=== PATIENT | female | born 1955 | race Caucasian/White ===

== ENCOUNTER 2025-05-25 11:31 | Outpatient (CLI) | payer MEDICARE ==
--- NOTE | 2025-05-25 13:00 | RADIOLOGY REPORT ---
CLINICAL INDICATION: pain TECHNIQUE: 3 radiographic views of the bilateral sacroiliac joints were obtained. Comparison: None FINDINGS/IMPRESSION: There is no evidence of acute fracture or dislocation. The visualized joint space is well maintained. The alignment is anatomical. There is no radiopaque foreign body.
--- NOTE | 2025-05-25 13:06 | RADIOLOGY REPORT ---
CLINICAL INDICATION: LOW BACK PAIN, LEFT HIP PAIN TECHNIQUE: 1 radiographic views of the pelvis and 2 views of the bilateral hip were obtained. Comparison: None FINDINGS/IMPRESSION: There is no evidence of acute fracture or dislocation. The visualized joint space is well maintained. The alignment is anatomical. There is no radiopaque foreign body.
--- NOTE | 2025-05-25 13:06 | RADIOLOGY REPORT ---
INDICATION: LOW BACK PAIN, LEFT HIP PAIN COMPARISON: None TECHNIQUE: 3 views of the lumbar spine were obtained. FINDINGS: Mild anterolisthesis of L4 on L5. Mild multilevel degenerative disc disease of the lumbosacral spine No acute fracture, vertebral compression deformity or aggressive osseous lesions. The paravertebral soft tissues are grossly unremarkable. IMPRESSION: No acute fracture.
== END 2025-05-25 23:59 | disposition home or self-care (01) ==
LOC: RAD 11:31
PROVIDERS: ATTEND Internal Medicine
DX: M43.16 Spondylolisthesis, lumbar region (principal); M25.552 Pain in left hip; M46.1 Sacroiliitis, not elsewhere classified; G31.84 Mild cognitive impairment of uncertain or unknown etiology; M54.51 Vertebrogenic low back pain; M51.379 Other intervertebral disc degeneration, lumbosacral region without mention of lumbar back pain or lower extremity pain
CPT/HCPCS: 72100; 72200; 73502

== ENCOUNTER 2025-06-12 14:10 | Outpatient (CLI) | payer MEDICARE ==
--- NOTE | 2025-06-12 16:28 | RADIOLOGY REPORT ---
CLINICAL HISTORY: MILD COGNITIVE IMPAIRMENT OF UNCERTAIN OR UNKNOWN ETIOLOGY TECHNIQUE: Routine multiplanar imaging of the brain was performed without gadolinium contrast. COMPARISON: None FINDINGS: There is no abnormal restricted diffusion to suggest acute infarction. There is mild brain volume loss. Scattered T2 hyperintense foci within the white matter both cerebral hemispheres is most compatible with a minimal burden of nonspecific chronic small vessel ischemic change. There is no evidence for acute ischemic changes, mass, mass effect, or extra- axial fluid collection. There is no hydrocephalus or midline shift. The cerebral sulci and subarachnoid cisterns are not effaced. The imaged paranasal sinuses are clear. The globes are intact. The midline structures, including the corpus callosum, are unremarkable. The intracranial flow voids are maintained. IMPRESSION: No acute intracranial abnormality seen. No evidence for acute infarct. Mild brain volume loss. Minimal chronic small vessel ischemic change.
== END 2025-06-12 23:59 | disposition home or self-care (01) ==
LOC: MRI02 14:10
PROVIDERS: ATTEND Internal Medicine
DX: G31.84 Mild cognitive impairment of uncertain or unknown etiology (principal); M46.1 Sacroiliitis, not elsewhere classified; M25.552 Pain in left hip; M54.51 Vertebrogenic low back pain
CPT/HCPCS: 70551

== ENCOUNTER 2025-06-16 07:42 | Outpatient (CLI) | payer MEDICARE ==
--- NOTE | 2025-06-16 08:43 | RADIOLOGY REPORT ---
CLINICAL HISTORY: EPIGASTRIC PAIN,UPPER ABDOMINAL PAIN TECHNIQUE: CT of the abdomen and pelvis was performed with oral contrast. No IV contrast was administered. This exam was performed according to our departmental dose optimization program. Up-to-date CT equipment and radiation dose reduction techniques are utilized as appropriate. CTDI 6.8 DLP 304 COMPARISON: None FINDINGS: Abdomen/Pelvis: The spleen, pancreas, adrenal glands, kidneys, gallbladder, liver, uterus, and bladder are grossly unremarkable. The abdominal aorta is normal in course and caliber. There are [id number] aortic atherosclerotic calcifications. There is no free intraperitoneal air or fluid. There is no enlarged abdominal or pelvic lymph node. There is no bowel wall thickening or dilatation. The appendix is normal. Other: The imaged lower thorax is unremarkable. No acute osseous abnormality is evident. IMPRESSION: No acute abnormality.
[2025-06-16 09:19] LABS: MEAN PLATELET VOLUME 6.9 FL (7.4-10.4); RED CELL DISTRIBUTION WIDTH 13.0 % (11.5-14.5)
[2025-06-16 09:20] LABS: LEUKOCYTE ESTERASE ,URINE NEGATIVE (Neg); NITRITES, URINE NEGATIVE (Neg); OCCULT BLOOD,URINE NEGATIVE (Neg)
[2025-06-16 09:28] LABS: UA COLLECTION TYPE NON-SPECIFIED
[2025-06-16 09:36] LABS: CHOL/HDL RATIO 2.6 (0.00-4.99); CREATININE 0.70 MG/DL (0.40-0.90); LDL CHOLESTEROL 100 MG/DL (50-100); TOTAL CARBON DIOXIDE 29.9 MMOL/L (24-32); eGFR 83 ML/MIN
== END 2025-06-16 23:59 | disposition home or self-care (01) ==
LOC: RAD 07:42
PROVIDERS: ATTEND Internal Medicine
DX: I70.0 Atherosclerosis of aorta (principal); I10 Essential (primary) hypertension; A53.9 Syphilis, unspecified; E55.9 Vitamin D deficiency, unspecified; E78.5 Hyperlipidemia, unspecified; R10.13 Epigastric pain; R10.10 Upper abdominal pain, unspecified; R73.01 Impaired fasting glucose; N39.0 Urinary tract infection, site not specified; E03.9 Hypothyroidism, unspecified; D52.9 Folate deficiency anemia, unspecified
CPT/HCPCS: 36415; 74176; 80053; 80061; 81003; 82043; 82746; 83036; 84425; 84443; 85025; 86592

== ENCOUNTER 2025-06-23 09:16 | Outpatient (CLI) | payer MEDICARE ==
--- NOTE | 2025-06-23 11:41 | RADIOLOGY REPORT ---
INDICATION: POSTMENOPAUSAL BLEEDING TECHNIQUE: Multiple real-time grayscale transabdominal sonographic images along with color and duplex Doppler of the uterus and ovaries were obtained. COMPARISON: None FINDINGS: The uterus measures 2 x 1 x 1 cm. The endometrial stripe measures 0.6cm. The right ovary measures 2 x 1 x 1 cm. SubCm right ovarian cyst. The left ovary measures 2 x 2 x 1 cm. Subsequent color and duplex Doppler interrogation of the ovaries demonstrated symmetric vascular flow to both ovaries, though this does not exclude the possibility of torsion due to the dual blood supply. IMPRESSION: 1. Grossly unremarkable pelvic ultrasound.
== END 2025-06-23 23:59 | disposition home or self-care (01) ==
LOC: RAD 09:16
PROVIDERS: ATTEND Internal Medicine
DX: N83.201 Unspecified ovarian cyst, right side (principal); N95.0 Postmenopausal bleeding
CPT/HCPCS: 76830; 93976